=== PATIENT | female | born 1980 | race Caucasian/White ===

== ENCOUNTER 2021-02-21 09:17 | Emergency (ER) | payer OTHER ==
[2021-02-21 11:51] LABS: HEMOGLOBIN 15.8 gm/dl (12.3-15.3); RED BLOOD COUNT 5.14 M/UL (4.00-5.10); WHITE BLOOD COUNT 7.7 K/UL (4.5-11.0)
[2021-02-21 12:23] LABS: BUN/CREATININE RATIO 18 (0-10)
[2021-02-21] MEDS ORDERED: FLAGYL500 MG PO (13:11)
[2021-02-21] MEDS ORDERED: ZOFRAN4 MG PO (13:11)
[2021-02-21] MEDS ORDERED: BENTYL 20MG TAB20 MG PO (13:11)
[2021-02-21] MEDS ORDERED: LEVOFLOXACIN750 MG PO (13:11)
== END 2021-02-21 13:30 | disposition home or self-care (01) ==
LOC: ER1 09:17
PROVIDERS: Physician Assistant
DX: K52.9 Noninfective gastroenteritis and colitis, unspecified (principal); I10 Essential (primary) hypertension; F17.290 Nicotine dependence, other tobacco product, uncomplicated; Z88.5 Allergy status to narcotic agent
CPT/HCPCS: 80053; 81001; 82150; 83690; 84703; 85025; 96374; 96375; 99284; J1170; J1885; J2405; Q9967

== ENCOUNTER 2021-02-22 04:25 | Emergency (ER) | payer OTHER ==
[~2021-02-22 04:25] MED LIST: BENTYL 20MG TAB20 MG PO; FLAGYL500 MG PO; LEVOFLOXACIN750 MG PO; ZOFRAN4 MG PO
[2021-02-22 05:27] LABS: HEMOGLOBIN 14.6 gm/dl (12.3-15.3); RED BLOOD COUNT 4.78 M/UL (4.00-5.10); WHITE BLOOD COUNT 6.7 K/UL (4.5-11.0)
[2021-02-22 05:42] LABS: BUN/CREATININE RATIO 19 (0-10)
== END 2021-02-22 10:08 | disposition other institution (70) ==
LOC: ER1 04:25
PROVIDERS: Emergency Medicine
DX: K56.609 Unspecified intestinal obstruction, unspecified as to partial versus complete obstruction (principal); I10 Essential (primary) hypertension; F17.290 Nicotine dependence, other tobacco product, uncomplicated
CPT/HCPCS: 80053; 81001; 83605; 83690; 85025; 96374; 96375; 99285; J1170; J3010; J7030; Q9967

== ENCOUNTER → 2021-09-06 | Emergency (ER) | payer OTHER ==
[~2021-09-06] MED LIST changes: +PROTONIX40 MG PO
[2021-09-06 17:42] LABS: HEMOGLOBIN 15.7 gm/dl (12.3-15.3); RED BLOOD COUNT 4.78 M/UL (4.00-5.10); WHITE BLOOD COUNT 7.2 K/UL (4.5-11.0)
[2021-09-06 18:05] LABS: BUN/CREATININE RATIO 29 (0-10)
== END | disposition home or self-care (01) ==
LOC: ER1 17:16
PROVIDERS: Physician Assistant
DX: J06.9 Acute upper respiratory infection, unspecified (principal); J40 Bronchitis, not specified as acute or chronic; R10.11 Right upper quadrant pain; Z20.822 Contact with and (suspected) exposure to COVID-19; R11.2 Nausea with vomiting, unspecified; R19.7 Diarrhea, unspecified; R10.811 Right upper quadrant abdominal tenderness; I10 Essential (primary) hypertension; K21.9 Gastro-esophageal reflux disease without esophagitis; Z88.5 Allergy status to narcotic agent; Z79.899 Other long term (current) drug therapy
CPT/HCPCS: 0240U; 71045; 80053; 83690; 84703; 85025; 96374; 96375; 99284; J2270; J2405; Q9967

== ENCOUNTER 2022-01-24 23:16 | Emergency (ER) | payer OTHER | END 2022-01-25 01:15 | disposition left against medical advice (07) | LOC: ER1 23:16 | DX: Z53.21 Procedure and treatment not carried out due to patient leaving prior to being seen by health care provider (principal) ==

== ENCOUNTER 2022-06-24 18:26 | Emergency (ER) | payer OTHER ==
[2022-06-24 18:56] LABS: RED BLOOD COUNT 4.75 M/UL (4.00-5.10); WHITE BLOOD COUNT 8.5 K/UL (4.5-11.0)
[2022-06-24 19:43] LABS: BUN/CREATININE RATIO 26 (0-10)
[2022-07-03] MEDS ORDERED: LINZESS145 MCG PO (17:00)
[2022-07-03] MEDS ORDERED: AMLODIPINE BESYL5 MG PO (17:00)
[2022-07-03] MEDS ORDERED: HYDROCHLOROTH12.5 MG PO (17:00)
[2022-07-03] MEDS ORDERED: D3-501250 MCG PO (17:00)
[2022-07-03] MEDS ORDERED: LORAZEPAM0.5 MG PO (17:01)
[2022-07-03] MEDS ORDERED: PROTONIX 40 MG40 M1 PO (17:01)
[2022-07-03] MEDS ORDERED: LAMICTAL25 MG PO (17:01)
[2022-07-03] MEDS ORDERED: FLUOXETINE HCL40 MG PO (17:01)
[2022-07-03] MEDS ORDERED: METOPROLOL SUCC50 MG PO (17:02)
== END 2022-06-24 23:44 | disposition left against medical advice (07) ==
LOC: ER1 18:26
PROVIDERS: Physician Assistant
DX: R10.84 Generalized abdominal pain (principal); I10 Essential (primary) hypertension; F17.290 Nicotine dependence, other tobacco product, uncomplicated; Z88.5 Allergy status to narcotic agent
CPT/HCPCS: 80053; 81001; 83605; 83690; 84703; 85025; 96374; 96375; 99283; J1885; J2405; Q9967